=== PATIENT | female | born 1990 | race Caucasian/White ===

== ENCOUNTER → 2020-12-04 11:12 | Outpatient (BNVA) | payer OTHER, SELFPAY | PROVIDERS: Family Provider Nurse Practitioner Family; PCP Nurse Practitioner Family; Visit Provider Nurse Practitioner Family | DX: J06.9 Acute upper respiratory infection, unspecified (principal); Z20.822 Contact with and (suspected) exposure to COVID-19 | CPT/HCPCS: 87635 ==

== ENCOUNTER 2022-03-09 20:06 | Emergency (ER) | payer SELFPAY ==
[2022-03-09 20:21] VITALS: BP 160/115; PULSE 78; RESP 15; TEMP 36.4; O2SAT 99; BMI 46.7
--- NOTE | 2022-03-09 21:41 | PC.NURSE ---
EKG completed and reviewed by Dr. Gaytan @ 2040. No acute changes noted.
--- NOTE | 2022-03-10 01:59 | ECG_ITS ---
[facility] Test Date: 2022-03-10 Pat Name: Anjana Arreola Department: Room: Gender: Female [employer]: : 1990 Requested By: Aston Castelan Order Number: [id number] Meraz MD: Phan Alcala M.D. Measurements Intervals [place] Rate: 59 P: 33 [place]: 187 QRS: 20 QRSD: 89 T: 20 QT: 421 QTc: 420 Interpretive Statements SINUS BRADYCARDIA No previous ECG available for comparison Electronically Signed On 03-11-2022 18:18:28 CONTRACT ANALYST by Phan Alcala M.D. [id number]
--- NOTE | 2022-03-10 01:59 | CTR_ITS ---
PROCEDURE INFORMATION: Exam: CT Head Without Contrast Exam date and time: 03/10/2022 2:21 AM Age: 31 years old Clinical indication: Pain; Headache not specified; Additional info: Hypertensive urgency with headaches TECHNIQUE: Imaging protocol: Computed tomography of the head without contrast. Radiation optimization: All CT scans at this facility use at least one of these dose optimization techniques: automated exposure control; mA and/or kV adjustment per patient size (includes targeted exams where dose is matched to clinical indication); or iterative reconstruction. COMPARISON: No relevant prior studies available. RADIATION DOSE METRICS: Total DLP (mGy-cm): 1158.04 FINDINGS: Brain: Normal. No hemorrhage. Unremarkable white matter. No mass effect. Cerebral ventricles: No ventriculomegaly. Paranasal sinuses: Visualized sinuses are unremarkable. No fluid levels. Mastoid air cells: Visualized mastoid air cells are well aerated. Bones/joints: Unremarkable. No acute fracture. Soft tissues: Unremarkable. CT/CT head wo con* [id number] IMPRESSION: No acute intracranial abnormality.
--- NOTE | 2022-03-10 02:00 | XRR_ITS ---
PROCEDURE INFORMATION: Exam: XR Chest Exam date and time: 03/10/2022 3:17 AM Age: 31 years old Clinical indication: Pain; Chest pressure; Additional info: Chest tightness with elevated BP TECHNIQUE: Imaging protocol: Radiologic exam of the chest. Views: 1 view. COMPARISON: No relevant prior studies available. FINDINGS: Lungs: Unremarkable. No consolidation. Pleural spaces: Unremarkable. No pleural effusion. No pneumothorax. Heart/Mediastinum: Unremarkable. No cardiomegaly. Bones/joints: Unremarkable. XR/XR chest 1V portable [id number] IMPRESSION: No acute findings.
--- NOTE | 2022-03-10 02:00 | W.ED.GENADLT ---
Documented by User: [email or web address] Boo 03/10/22 22:22 HPI - General Adult General: Chief complaint: General Medical Stated complaint: High B/P urgant care sent Time Seen by Provider: 03/10/22 01:50 History of Present Illness: Pt is a 31-year-old female who comes to the ED for elevated blood pressure. Patient was seen at urgent care just prior to arrival and told to come to the ED for further evaluation. She states that for the past couple weeks she has been having elevated blood pressure readings at home and also having constant headaches. Headaches are located in the front of her head and she rates it a 5 out of 10. Today she continued to have elevated blood pressure readings at home and says she had a blood pressure of 170s over 110. She also was feeling some chest tightness and some numbness/tingling sensation left hand. Chest tightness started approximately 2 days ago. Denies chest pain. She went to urgent care clinic and denies any vision changes, weakness to face or extremities. Patient is not currently on any blood pressure medications. Associated symptoms: Reports chest pain (chest tightness) and headache(s); Deny dyspnea, nausea, rash, palpitations or vomiting Review of Systems Const: Denies: fever(s), chills or fatigue Eyes: Denies: change in vision or eye discomfort ENMT: Denies: throat pain, odynophagia, nasal discharge or nasal congestion Card: Reports: chest pain (chest tightness); Denies: palpitations, edema, swelling of feet/ankles, dyspnea on exertion or orthopnea Resp: Denies: dyspnea, productive cough or non-productive cough GI: Denies: abdominal pain, nausea, vomiting, diarrhea, constipation or hematochezia : Denies: flank pain, dysuria or hematuria Musc: Denies: neck pain, back pain or extremity swelling Skin/Breast: Denies: rash or new lesions Neuro: Reports: headache(s); Denies: numbness in extremities or weakness in extremities [facility] ED PFSH: Medical History Anxiety Depressed HTN (hypertension) with goal to be determined Physical Exam Const: COMMON NORMALS: no acute distress, patient oriented x3 and alert GENERAL APPEARANCE: cooperative HENMT: COMMON NORMALS: normocephalic HEAD & SCALP: normocephalic MOUTH: Normal oral and palatal mucosa present THROAT: posterior oropharynx normal and uvula midline Eye: COMMON NORMALS: Equal, round and reactive pupils present, EOMs intact bilaterally and conjunctivae normal CONJUNCTIVA: Yes conjunctivae normal PUPIL: Yes Equal, round and reactive pupils present Neck/C-Spine: COMMON NORMALS: supple GENERAL: Yes normal visual inspection Resp: COMMON NORMALS: normal respiratory effort, No retractions, No use of accessory muscles and clear to auscultation bilaterally AUSCULTATION: clear to auscultation bilaterally Cardio: COMMON NORMALS: regular rate, regular rhythm, S1 normal heart sound present, S2 normal heart sound present, No gallops present (Cardio), No clicks present (Cardio), No murmurs present (Cardio) and Peripheral pulses 2+ throughout RATE: regular rate RHYTHM: regular rhythm HEART SOUNDS: S1 normal heart sound present and S2 normal heart sound present PERIPHERAL PULSES: Peripheral pulses 2+ throughout GI: COMMON NORMALS: Normal to inspection, nondistended, normoactive bowel sounds present, Soft to palpation, non-tender and no masses PALPATION: Yes Soft to palpation : COMMON NORMALS: Yes no CVA tenderness BLADDER/KIDNEY EXAM: Yes no CVA tenderness Back/Pelvis: COMMON NORMALS: no CVA tenderness Extremity: COMMON NORMALS: normal to inspection Neuro: COMMON NORMALS: patient oriented x3, CN's II-XII intact bilaterally, moves all extremities, no focal motor deficits and no sensory deficits noted SENSORIUM/ORIENTATION: Yes alert COORDINATION/BALANCE: onakqa-od-qbtn test normal SPEECH: speech normal GAIT: Yes Normal gait present MOTOR EXAM: 5/5 motor strength present throughout COORDINATION: [id number]-hy-knmu test normal Skin: GENERAL SKIN EXAM: dry skin Course Vital Signs: Vital signs: Vital Signs Temperature 97.6 F 03/09/22 20:21 Pulse Rate 68 03/10/22 04:12 Respiratory Rate 16 03/10/22 04:12 Blood Pressure 136/85 03/10/22 04:12 Pulse Oximetry 100 03/10/22 04:12 Oxygen Delivery Me thod 03/09/22 20:21 MDM - General Adult Medical Decision Making Pt is a 31-year-old female who comes to the ED for elevated blood pressure. Patient was seen at urgent care just prior to arrival and told to come to the ED for further evaluation. She states that for the past couple weeks she has been having elevated blood pressure readings at home and also having constant headaches. Headaches are located in the front of her head and she rates it a 5 out of 10. Today she continued to have elevated blood pressure readings at home and says she had a blood pressure of 170s over 110. She also was feeling some chest tightness and some numbness/tingling sensation left hand. Chest tightness started approximately 2 days ago. Blood pressure was 188/110. The rest of vitals were stable. Exam of patient is benign and neuro exam showed no deficits. CBC and CMP were unremarkable. Troponin negative. Chest x-ray showed no acute findings. Head CT showed no acute findings. EKG showed normal sinus rhythm with no ST segment ovation or depression seen. Patient was given some Toradol for headache and a dose of hydralazine for blood pressure. Blood pressure went down to 136/85. She was stable for discharge home and diagnosed with hypertensive urgency, chest tightness and headache. She was discharged with a prescription for lisinopril hydrochlorothiazide. To follow-up with her PCP within the next week for reevaluation. Return to ED precautions given. Patient understood and agreed with plan. Lab Data I reviewed the patient's lab results. 03/10/22 01:57 03/10/22 01:[address] 03/10/22 01:59 IMPRESSION: No acute intracranial abnormality. Chest X-Ray 03/10/22 02:00 IMPRESSION: No acute findings. Laboratory Results WBC 7.8 10^3/uL (4.0-10.0) 03/10/22 01:57 RBC 4.76 10^6/uL (4.1-5.3) 03/10/22 01:57 Hgb 14.0 g/dL (11.5-15.3) 03/10/22 01:57 Hct 42.6 % (37.0-47.0) 03/10/22 01:57 MCV 89.5 fl (81-99) 03/10/22 01:57 MCH 29.4 pg (28.0-34.0) 03/10/22 01:57 MCHC 32.9 g/dL (30.0-36.0) 03/10/22 01:57 RDW 12.6 % (12.1-15.1) 03/10/22 01:57 Plt Count 262 10^3/cmm (130-400) 03/10/22 01:57 MPV 10.5 fL (7.4-10.4) H 03/10/22 01:57 Neut % (Auto) 60.6 % 03/10/22 01:57 Lymph % (Auto) 29.3 % 03/10/22 01:57 [place] % (Auto) 6.6 % 03/10/22 01:57 Eos % (Auto) 2.6 % 03/10/22 01:57 Baso % (Auto) 0.6 % 03/10/22 01:57 Neut # (Auto) 4.75 10^3/uL (1.8-7.7) 03/10/22 01:57 Lymph # (Auto) 2.3 10^3/uL (0.8-4.8) 03/10/22 01:57 [place] # (Auto) 0.5 10^3/uL (0.2-0.9) 03/10/22 01:57 Eos # (Auto) 0.2 10^3/uL (0.0-0.8) 03/10/22 01:57 Baso # (Auto) 0.1 10^3/uL (0.0-0.1) 03/10/22 01:57 Nucleated RBC % (auto) 0 % 03/10/22 01:57 Nucleated RBCs # 0.0 /100WBC 03/10/22 01:57 Sodium 139 mmol/L (136-145) 03/10/22 01:57 Potassium 3.7 mmol/L (3.5-5.1) 03/10/22 01:57 Chloride 101 mmol/L (98-107) 03/10/22 01:57 Carbon Dioxide 26 mmol/L (22-29) 03/10/22 01:57 Anion Gap 15.7 (5-19) 03/10/22 01:57 BUN 8 mg/dL (6-20) 03/10/22 01:57 Creatinine 0.6 mg/dL (0.5-0.9) 03/10/22 01:57 GFR Calculation 115.9 mL/min (90-130) 03/10/22 01:57 Glucose 97 mg/dL (65-115) 03/10/22 01:57 Calculated Osmolality 286 mOsm/kg (285-295) 03/10/22 01:57 Calcium 9.4 mg/dL (8.5-10.5) 03/10/22 01:57 Total Bilirubin 0.7 mg/dL (0.15-1.2) 03/10/22 01:57 AST 23 U/L (0-32) 03/10/22 01:57 ALT 25 U/L (0-33) 03/10/22 01:57 Alkaline Phosphatase 85 U/L (35-105) 03/10/22 01:57 Troponin T Gen 5 ng/L 14 ng/L (0-10) H 03/10/22 01:57 Total Protein 7.6 g/dL (6.6-8.7) 03/10/22 01:57 Albumin 4.9 g/dL (3.5-5.2) 03/10/22 01:57 Globulin 2.7 g/dL (1.3-4.6) 03/10/22 01:57 HCG, Qual Negative (Negative) 03/10/22 01:57 EKG Data EKG 1: EKG interpretation date: 03/09/22 Interpretation: Normal sinus rhythm, no ST segment elevation or depression seen, 78 bpm. Computer generated interpretation: Head CT 03/10/22 01:59 IMPRESSION: No acute intracranial abnormality. Chest X-Ray 03/10/22 02:00 IMPRESSION: No acute findings. Discharge Plan Discharge Patient Disposition: Home Clinical Impression: Hypertensive urgency, Feeling of chest tightness Headache Qualifiers: Headache type: unspecified Headache chronicity pattern: unspecified pattern Intractability: not intractable Qualified Code(s): R51.9 - Headache, unspecified Condition: Stable Prescriptions: New lisinopril-hydrochlorothiazide 10-12.5 mg tablet 1 tab PO DAILY Qty: 30 0RF Discharge Orders: Discharge ED (Routine); Ordered 03/10/22 Ordered By: Aston Castelan Referrals: Bettina Galloway FNP-C [Primary Care Provider] - Discharge Diet: Regular Discharge Activity: Increase activity as tolerated Patient Instructions: Hypertension Activity Restrictions/Additional Instructions: Follow-up with medical provider as directed in the next 7 to 10 days for reevaluation. Take medications as prescribed. Return to the ER or your medical provider if condition worsens. Please read and understand discharge instructions. Thank you for choosing [facility] for your healthcare needs today. Please realize this is an emergency room and that we are providing you with a medical screening exam and this may not be complete and all inclusive of all the testing and or work up that you may need to determine your ailment or severity of your illness. It is very important that you follow up as instructed or that you return to the Emergency Department should you have concerns or if your condition changes or worsens in any way. Coding Level of Care Code ED Feeder Operator for Chg Fwd Exam Comprehensive Documented by User: Micheal Gaytan, 03/11/22 00:58 HPI - General Adult General: Chief complaint: General Medical Stated complaint: High B/P urgant care sent Time Seen by Provider: 03/10/22 01:50 [facility] ED PFSH: Medical History Anxiety Depressed HTN (hypertension) with goal to be determined Course Vital Signs: Vital signs: Vital Signs Temperature 97.6 F 03/09/22 20:21 Pulse Rate 68 03/10/22 04:12 Respiratory Rate 16 03/10/22 04:12 Blood Pressure 136/85 03/10/22 04:12 Pulse Oximetry 100 03/10/22 04:12 Oxygen Delivery Me thod 03/09/22 20:21 MDM - General Adult Medical Decision Making Pt is a 31-year-old female who comes to the ED for elevated blood pressure. Patient was seen at urgent care just prior to arrival and told to come to the ED for further evaluation. She states that for the past couple weeks she has been having elevated blood pressure readings at home and also having constant headaches. Headaches are located in the front of her head and she rates it a 5 out of 10. Today she continued to have elevated blood pressure readings at home and says she had a blood pressure of 170s over 110. She also was feeling some chest tightness and some numbness/tingling sensation left hand. Chest tightness started approximately 2 days ago. Blood pressure was 188/110. The rest of vitals were stable. Exam of patient is benign and neuro exam showed no deficits. CBC and CMP were unremarkable. Troponin negative. Chest x-ray showed no acute findings. Head CT showed no acute findings. EKG showed normal sinus rhythm with no ST segment ovation or depression seen. Patient was given some Toradol for headache and a dose of hydralazine for blood pressure. Blood pressure went down to 136/85. She was stable for discharge home and diagnosed with hypertensive urgency, chest tightness and headache. She was discharged with a prescription for lisinopril hydrochlorothiazide. To follow-up with her PCP within the next week for reevaluation. Return to ED precautions given. Patient understood and agreed with plan. This patient was originally seen by Mr. Annelise PA-C.? I agree with his history, evaluation, and treatment. Lab Data 03/10/22 01:57 03/10/22 01:[address] 03/10/22 01:59 IMPRESSION: No acute intracranial abnormality. Chest X-Ray 03/10/22 02:00 IMPRESSION: No acute findings. Laboratory Results WBC 7.8 10^3/uL (4.0-10.0) 03/10/22 01:57 RBC 4.76 10^6/uL (4.1-5.3) 03/10/22 01:57 Hgb 14.0 g/dL (11.5-15.3) 03/10/22 01:57 Hct 42.6 % (37.0-47.0) 03/10/22 01:57 MCV 89.5 fl (81-99) 03/10/22 01:57 MCH 29.4 pg (28.0-34.0) 03/10/22 01:57 MCHC 32.9 g/dL (30.0-36.0) 03/10/22 01:57 RDW 12.6 % (12.1-15.1) 03/10/22 01:57 Plt Count 262 10^3/cmm (130-400) 03/10/22 01:57 MPV 10.5 fL (7.4-10.4) H 03/10/22 01:57 Neut % (Auto) 60.6 % 03/10/22 01:57 Lymph % (Auto) 29.3 % 03/10/22 01:57 [place] % (Auto) 6.6 % 03/10/22 01:57 Eos % (Auto) 2.6 % 03/10/22 01:57 Baso % (Auto) 0.6 % 03/10/22 01:57 Neut # (Auto) 4.75 10^3/uL (1.8-7.7) 03/10/22 01:57 Lymph # (Auto) 2.3 10^3/uL (0.8-4.8) 03/10/22 01:57 [place] # (Auto) 0.5 10^3/uL (0.2-0.9) 03/10/22 01:57 Eos # (Auto) 0.2 10^3/uL (0.0-0.8) 03/10/22 01:57 Baso # (Auto) 0.1 10^3/uL (0.0-0.1) 03/10/22 01:57 Nucleated RBC % (auto) 0 % 03/10/22 01:57 Nucleated RBCs # 0.0 /100WBC 03/10/22 01:57 Sodium 139 mmol/L (136-145) 03/10/22 01:57 Potassium 3.7 mmol/L (3.5-5.1) 03/10/22 01:57 Chloride 101 mmol/L (98-107) 03/10/22 01:57 Carbon Dioxide 26 mmol/L (22-29) 03/10/22 01:57 Anion Gap 15.7 (5-19) 03/10/22 01:57 BUN 8 mg/dL (6-20) 03/10/22 01:57 Creatinine 0.6 mg/dL (0.5-0.9) 03/10/22 01:57 GFR Calculation 115.9 mL/min (90-130) 03/10/22 01:57 Glucose 97 mg/dL (65-115) 03/10/22 01:57 Calculated Osmolality 286 mOsm/kg (285-295) 03/10/22 01:57 Calcium 9.4 mg/dL (8.5-10.5) 03/10/22 01:57 Total Bilirubin 0.7 mg/dL (0.15-1.2) 03/10/22 01:57 AST 23 U/L (0-32) 03/10/22 01:57 ALT 25 U/L (0-33) 03/10/22 01:57 Alkaline Phosphatase 85 U/L (35-105) 03/10/22 01:57 Troponin T Gen 5 ng/L 14 ng/L (0-10) H 03/10/22 01:57 Total Protein 7.6 g/dL (6.6-8.7) 03/10/22 01:57 Albumin 4.9 g/dL (3.5-5.2) 03/10/22 01:57 Globulin 2.7 g/dL (1.3-4.6) 03/10/22 01:57 HCG, Qual Negative (Negative) 03/10/22 01:57 EKG Data EKG 1: Computer generated interpretation: Head CT 03/10/22 01:59 IMPRESSION: No acute intracranial abnormality. Chest X-Ray 03/10/22 02:00
[2022-03-10 02:13] LABS: Basophils # 0.1 10^3/uL (0.0-0.1); Basophils % 0.6 %; Eosinophils # 0.2 10^3/uL (0.0-0.8); Eosinophils % 2.6 %; Hematocrit 42.6 % (37.0-47.0); Lymphocytes # 2.3 10^3/uL (0.8-4.8); Lymphocytes % 29.3 %; Mean Corpuscular HGB Conc 32.9 g/dL (30.0-36.0); Mean Corpuscular Hemoglobin 29.4 pg (28.0-34.0); Mean Corpuscular Volume 89.5 fl (81-99); Mean Platelet Volume 10.5 fL (7.4-10.4); Monocytes # 0.5 10^3/uL (0.2-0.9); Monocytes % 6.6 %; Neutrophils # 4.75 10^3/uL (1.8-7.7); Neutrophils % 60.6 %; Nucleated Red Blood Cells % 0 %; Platelet Count 262 10^3/cmm (130-400); Red Blood Count 4.76 10^6/uL (4.1-5.3); Red Cell Distribution Width 12.6 % (12.1-15.1); White Blood Count 7.8 10^3/uL (4.0-10.0)
[2022-03-10 02:25] VITALS: BP 135/93; PULSE 65; RESP 16; O2SAT 100
[2022-03-10 02:30] LABS: Alanine Aminotransferase 25 U/L (0-33); Albumin Level 4.9 g/dL (3.5-5.2); Alkaline Phosphatase 85 U/L (35-105); Anion Gap 15.7 (5-19); Aspartate Amino Transferase 23 U/L (0-32); Blood Urea Nitrogen 8 mg/dL (6-20); Calcium 9.4 mg/dL (8.5-10.5); Carbon Dioxide 26 mmol/L (22-29); Chloride 101 mmol/L (98-107); Globulin 2.7 g/dL (1.3-4.6); Glomerular Filtration Rate 115.9 mL/min (90-130); Glucose 97 mg/dL (65-115); Osmolality Calculated 286 mOsm/kg (285-295); Potassium 3.7 mmol/L (3.5-5.1); Sodium 139 mmol/L (136-145); Total Bilirubin 0.7 mg/dL (0.15-1.2); Total Protein 7.6 g/dL (6.6-8.7)
[2022-03-10 02:31] LABS: Troponin T (5th) Once 14 ng/L (0-10)
[2022-03-10 02:36] LABS: HCG, Serum Qual Negative (Negative)
[2022-03-10] MEDS: hyDRALAzine 25 mg Tablet PO (03:20)
[2022-03-10] MEDS: ketorolac 30 mg/mL INJ IM (03:20)
[2022-03-10 04:12] VITALS: BP 136/85; PULSE 68; RESP 16; O2SAT 100
== END 2022-03-10 03:59 | disposition home or self-care (01) ==
PROVIDERS: Emergency Provider Physician Assistant; PCP Nurse Practitioner Family
DX: I16.0 Hypertensive urgency (principal); R07.89 Other chest pain; R51.9 Headache, unspecified; I10 Essential (primary) hypertension
CPT/HCPCS: 70450; 71045; 80053; 84484; 84703; 85025; 93005; 99285; J1885

== ENCOUNTER → 2022-05-08 14:53 | Outpatient (BNVA) | payer SELFPAY | PROVIDERS: PCP Nurse Practitioner Family; Visit Provider Nurse Practitioner Family | DX: I10 Essential (primary) hypertension (principal) | CPT/HCPCS: 80061; 84443 ==

== ENCOUNTER → 2022-09-20 12:01 | Outpatient (BNVA) | payer SELFPAY | PROVIDERS: PCP Nurse Practitioner Family; Visit Provider Nurse Practitioner Family | DX: I10 Essential (primary) hypertension (principal) | CPT/HCPCS: 80053; 80061; 84443; 85025 ==

== ENCOUNTER → 2022-09-23 09:58 | Outpatient (BNVA) | payer SELFPAY | PROVIDERS: PCP Nurse Practitioner Family; Visit Provider Nurse Practitioner Family | DX: I10 Essential (primary) hypertension (principal) | CPT/HCPCS: 80053; 80061; 84443; 85025 ==

== ENCOUNTER → 2023-04-24 09:38 | Outpatient (BNVA) | payer SELFPAY | PROVIDERS: PCP Nurse Practitioner Family; Visit Provider Nurse Practitioner Family | DX: I10 Essential (primary) hypertension (principal); F41.9 Anxiety disorder, unspecified; F32.A Depression, unspecified | CPT/HCPCS: 80053; 80061; 84443; 85025 ==

== ENCOUNTER → 2025-04-19 12:06 | Outpatient (BNVA) | payer OTHER, SELFPAY | PROVIDERS: PCP Nurse Practitioner Family; Visit Provider Nurse Practitioner Family | DX: I10 Essential (primary) hypertension (principal); F41.9 Anxiety disorder, unspecified; F32.A Depression, unspecified | CPT/HCPCS: 80053; 80061; 84443; 85025 ==